=== PATIENT | born 1995 | race Caucasian/White ===

== ENCOUNTER → 2024-11-29 09:08 | Outpatient (BNVA) | payer MEDICARE, SELFPAY | PROVIDERS: Referring Provider Nurse Practitioner; Visit Provider Internal Medicine | DX: R79.89 Other specified abnormal findings of blood chemistry (principal); E03.9 Hypothyroidism, unspecified; E27.9 Disorder of adrenal gland, unspecified | CPT/HCPCS: 99204 ==